=== PATIENT | female | born 2000 | race Caucasian/White ===

== ENCOUNTER → 2023-04-04 15:43 | Outpatient (CLI) | payer OTHER, SELFPAY | PROVIDERS: Referring Provider Family Medicine; Visit Provider Family Medicine | DX: Z23 Encounter for immunization (principal) | CPT/HCPCS: 90471; 90686 ==

== ENCOUNTER → 2023-11-29 16:51 | Outpatient (CLI) | payer OTHER, SELFPAY ==
[2023-11-29 18:09] LABS: Hematocrit 40.8 % (36-46); Hemoglobin 14.1 g/dL (12.0-16.0); Mean Corpuscular HGB Conc 34.7 % (30-36); Mean Corpuscular Hemoglobin 32.8 PG (26-34); Mean Corpuscular Volume 94.6 fL (80-100); Platelet Count 203 X10^3/uL (150-400); Red Blood Cell Count 4.31 X10^6/uL (4.0-5.2); Red Cell Distribution Width 12.4 % (11.6-14.8); White Blood Cell Count 9.4 X10^3/uL (4.5-11.0)
[2023-11-29 19:00] LABS: BUN Creatinine Ratio 9.3 (6-22); Blood Urea Nitrogen 10 mg/dL (7-17); Calcium 9.5 mg/dL (8.4-10.2); Carbon Dioxide 27 mmol/L (22-32); Chloride 104 mmol/L (98-107); Estimated Glomerular Filt Rate > 60 mL/min (>60); Glucose 81 mg/dL (70-100); HEMOLYSIS < 15 (0-50); Potassium 3.9 mmol/L (3.4-5.1); Sodium 139 mmol/L (137-145)
[2023-11-29 19:31] LABS: TSH w/ Reflex to FT4 0.95 uIU/mL (0.47-4.68)
== END ==
LOC: LAB 16:51
PROVIDERS: PCP Nurse Practitioner Family; Referring Provider Nurse Practitioner Family; Visit Provider Nurse Practitioner Family
DX: R61 Generalized hyperhidrosis (principal)
CPT/HCPCS: 36415; 80048; 84443; 85027

== ENCOUNTER → 2024-04-14 | Outpatient (CLI) | payer OTHER, SELFPAY | PROVIDERS: PCP Nurse Practitioner Family; Referring Provider Internal Medicine; Visit Provider Internal Medicine | DX: Z23 Encounter for immunization (principal) | CPT/HCPCS: 90471; 90656 ==

== ENCOUNTER → 2024-09-01 07:07 | Outpatient (CLI) | payer OTHER, SELFPAY ==
--- NOTE | 2024-09-01 07:08 | DI.US.S_ITS ---
PROCEDURE: US OB <= 14 WEEKS FETUS INDICATIONS: DATING OUTSIDE/PRIOR DATING DATA: Last menstrual period (LMP): 07/07/2024. LMP-based estimated date of delivery (PANCHO): 04/13/2025. First dating scan (date and location): 09/01/2024. Estimated date of delivery (PANCHO) from first dating scan: 04/15/2025. The calculations are made using the clinical PANCHO of 03/24/2025. TECHNIQUE: Real-time scanning was performed of the fetus and maternal pelvic organs, with image documentation. Endovaginal scanning was also performed to better visualize the fetus and maternal ovaries. COMPARISON: None. FINDINGS: Embryo: Single live intrauterine is identified with crown-rump length measuring 14 mm corresponding to 7 weeks 5 days. Perigestational hemorrhage is present measuring 2.4 x 3.1 x 0.9 cm. Heart rate: 162 beats per minute. Maternal organs: Ovaries demonstrate a left corpus luteal cyst.. IMPRESSION: Single live intrauterine with gestational age today of 7 weeks 5 days. Small perigestational hemorrhage. Recommend followup imaging at 20-22 weeks for dates and anatomy. We strive to produce accurate, complete, and clear reports of imaging services. To assist us in improving patient care, this report was composed using standard report templates and voice recognition software. Therefore, it may contain abnormal punctuation, insertions and/or omissions. Occasional wrong-word or sound-alike substitutions may occur. Though we review the report and make efforts to correct it, we do recommend that the report be read carefully in proper context to recognize any text inaccuracies. Dictated by: Carlotta Freeman M.D. on 09/01/2024 at 11:25 Approved by: Carlotta Freeman M.D. on 09/01/2024 at 11:28
== END ==
LOC: US 07:08
PROVIDERS: PCP Nurse Practitioner Family; Referring Provider Family Medicine; Visit Provider Family Medicine
DX: O34.81 Maternal care for other abnormalities of pelvic organs, first trimester (principal); O46.91 Antepartum hemorrhage, unspecified, first trimester; N83.12 Corpus luteum cyst of left ovary; Z3A.01 Less than 8 weeks gestation of pregnancy
CPT/HCPCS: 76801; 76817

== ENCOUNTER → 2024-10-01 08:56 | Outpatient (CLI) | payer OTHER, SELFPAY ==
[2024-10-01 09:34] LABS: Add Manual Diff / Slide Review NO; Basophils Absolute Auto 0 /uL (0-100); Basophils Percent Auto 0.2 % (0-2); Eosinophils Absolute Auto 0 /uL (0-450); Eosinophils Percent Auto 0.4 % (2-4); Hematocrit 42.3 % (36-46); Hemoglobin 14.7 g/dL (12.0-16.0); Lymphocytes Absolute Auto 1600 /uL (1100-4500); Lymphocytes Percent Auto 19.8 % (25-40); Mean Corpuscular HGB Conc 34.9 % (30-36); Mean Corpuscular Volume 94.6 fL (80-100); Monocytes Absolute Auto 400 /uL (0-900); Monocytes Percent Auto 4.3 % (3-14); Neutrophils Absolute Auto 6200 /uL (1500-7000); Neutrophils Percent Auto 75.3 % (50-75); Platelet Count 222 X10^3/uL (150-400); Red Blood Cell Count 4.47 X10^6/uL (4.0-5.2); Red Cell Distribution Width 12.5 % (11.6-14.8); White Blood Cell Count 8.3 X10^3/uL (4.5-11.0)
[2024-10-01 10:04] LABS: Natera Collection Specimen Collected
[2024-10-01 10:16] LABS: Alanine Aminotransferase 19 IU/L (<35); Albumin 4.5 g/dL (3.5-5.0); Albumin Globulin Ratio 1.7 (1.0-2.8); Alkaline Phosphatase 47 U/L (38-126); Aspartate Aminotransferase 29 IU/L (14-36); BUN Creatinine Ratio 9.8 (6-22); Bilirubin Total 0.5 mg/dL (0.2-1.3); Blood Urea Nitrogen 5 mg/dL (7-17); Calcium 9.8 mg/dL (8.4-10.2); Carbon Dioxide 21 mmol/L (22-32); Chloride 104 mmol/L (98-107); Estimated Glomerular Filt Rate > 60 mL/min (>60); Globulin 2.6 g/dL (1.7-4.1); Glucose 86 mg/dL (70-100); HEMOLYSIS < 15 (0-50); Potassium 4.3 mmol/L (3.4-5.1); Sodium 134 mmol/L (137-145); Total Protein 7.1 g/dL (6.3-8.2)
[2024-10-01 12:48] LABS: Appearance Urine UA CLEAR; Bilirubin Urine UA NEGATIVE (NEGATIVE); Color Urine UA YELLOW; Glucose Urine UA NEGATIVE (Negative); Ketones Urine UA NEGATIVE (NEGATIVE); Leukocyte Esterase Urine UA NEGATIVE (NEGATIVE); Nitrite Urine UA NEGATIVE (Negative); Occult Blood Urine UA NEGATIVE (Negative); Protein Urine UA NEGATIVE (Negative); Specific Gravity Urine UA >=1.030 (1.000-1.035); Urobilinogen Urine UA 0.2 E.U./dL (0.2)
[2024-10-01 13:50] LABS: Urine Chlamydia NOT DETECTED; Urine N gonorrhoeae NOT DETECTED
[2024-10-01 14:51] LABS: Creatinine Urine Random 214.55 mg/dL; Protein (Total) Urine Random 10 mg/dL (0-12); Protein Creatinine Ratio Urine 0.04 GRAM/24H
[2024-10-01 15:37] LABS: Hepatitis B Surface Antigen NEGATIVE s/c (NEGATIVE)
[2024-10-01 15:45] LABS: HIV 1 & 2 Ab/Ag 4th Gen Combo NEGATIVE (NEGATIVE); Hep C Virus Ab w/Reflex Quant NEGATIVE s/c (NEGATIVE)
[2024-10-02 03:41] LABS: RPR Screen Non Reactive (Non Reactive)
[2024-10-02 09:40] LABS: Varicella IgG Antibody Non Reactive (Non Reactive)
== END ==
PROVIDERS: PCP Nurse Practitioner Family; Referring Provider Family Medicine; Visit Provider Family Medicine
DX: Z34.01 Encounter for supervision of normal first pregnancy, first trimester (principal)
CPT/HCPCS: 36415; 80053; 80055; 81003; 82570; 84156; 86787; 86803; 86850; 86900; 86901; 87086; 87389; 87491; 87591

== ENCOUNTER → 2024-11-19 07:35 | Outpatient (CLI) | payer OTHER, SELFPAY ==
--- NOTE | 2024-11-19 07:36 | DI.US.S_ITS ---
PROCEDURE: US OB >= 14 WEEKS FETUS INDICATIONS: anatomy US OUTSIDE/PRIOR DATING DATA: Last menstrual period (LMP): 07/07/2024. LMP-based estimated date of delivery (PANCHO): 04/13/2025. First dating scan (date and location): 09/01/2024. Estimated date of delivery (PANCHO) from first dating scan: 04/15/2025. The calculations are made using the clinical PANCHO of 04/13/2025. TECHNIQUE: Real-time scanning was performed of the fetus, with image documentation and biometric measurements. Endovaginal scanning: Not performed COMPARISON: [facility], , OB <= 14 WEEKS FETUS, 09/01/2024, 7:15. FINDINGS: General: A single living intrauterine gestation is present. Presentation: Transverse, head maternal left. Placenta: Placental position is posterior, without previa. Amniotic fluid index: 17.2 cm, normal range is 5-24 cm. Single deepest vertical pocket is 5.1 cm. heart rate: 145 beats per minute. Maternal cervical canal: 4.4 cm long. Normal lower limit is 2.5 cm. biometrics: Biparietal diameter: 4.3 cm, 19 weeks 0 days Head circumference: 15.9 cm, 18 weeks 5 days Abdominal circumference: 14.5 cm, 19 weeks 6 days Femur length: 2.8 cm, 18 weeks 5 days Clinically estimated gestational age: 19 weeks 2 days Composite gestational age from present scan: 19 weeks 1 day Estimated weight and percentile: 281 g, 42 percentile Anatomic survey: Neuro: Ventricles are non-dilated at less than 10 mm. Cisterna magna is normal at 3-11 mm. Cerebellum is normal in size and morphology. Nuchal skin fold: Normal at less than 6 mm between 14-21 weeks gestational age. Face: Nose and lips, facial profile are normal. Spine: No evidence for spina bifida. Heart: 4-chambered heart is present, with normal ventricular outflow tracts. Diaphragm: Diaphragm is intact. Stomach: Left-sided stomach is present. Kidneys: No hydronephrosis. Normal is less than 5 mm in 2nd trimester, less than 7 mm in 3rd trimester. Cord: 3-vessel cord has orthotopic insertion. Bladder: Normal in size. Extremities: All 4 extremities identified. IMPRESSION: 1. Rosales living intrauterine at 19 weeks 1 day based on today's ultrasound. Fetus is in the 42 percentile for weight. 2. Normal placenta and amniotic fluid. 3. Normal and complete anatomic survey. We strive to produce accurate, complete, and clear reports of imaging services. To assist us in improving patient care, this report was composed using standard report templates and voice recognition software. Therefore, it may contain abnormal punctuation, insertions and/or omissions. Occasional wrong-word or sound-alike substitutions may occur. Though we review the report and make efforts to correct it, we do recommend that the report be read carefully in proper context to recognize any text inaccuracies. Dictated by: Dl Wood M.D. on 11/20/2024 at 12:17 Approved by: Dl Wood M.D. on 11/20/2024 at 12:22
== END ==
PROVIDERS: PCP Nurse Practitioner Family; Referring Provider Family Medicine; Visit Provider Family Medicine
DX: Z34.90 Encounter for supervision of normal pregnancy, unspecified, unspecified trimester (principal); Z3A.19 19 weeks gestation of pregnancy
CPT/HCPCS: 76811

== ENCOUNTER → 2024-12-24 08:28 | Outpatient (CLI) | payer OTHER, SELFPAY ==
[2024-12-24 10:09] LABS: Add Manual Diff / Slide Review NO; Hematocrit 38.3 % (36-46); Hemoglobin 13.3 g/dL (12.0-16.0); Lymphocytes Absolute Auto 1700 /uL (1100-4500); Mean Corpuscular HGB Conc 34.6 % (30-36); Mean Corpuscular Hemoglobin 34.1 PG (26-34); Mean Corpuscular Volume 98.6 fL (80-100); Platelet Count 194 X10^3/uL (150-400)
[2024-12-24 10:28] LABS: HEMOLYSIS < 15 (0-50); Iron 107 ug/dL (37-170)
[2024-12-24 10:35] LABS: GTT (PREG) 1 Hour PP 50gm Dose 124 mg/dL (76-139)
[2024-12-24 10:39] LABS: Percent Iron Saturation 23 % (15-50); Total Iron Binding Capacity 470 ug/dL (265-497); Transferrin 413 mg/dL (206-381)
[2024-12-24 11:05] LABS: Ferritin 7 ng/mL (6-137)
== END ==
PROVIDERS: PCP Nurse Practitioner Family; Referring Provider Family Medicine; Visit Provider Family Medicine
DX: Z13.0 Encounter for screening for diseases of the blood and blood-forming organs and certain disorders involving the immune mechanism (principal); Z34.92 Encounter for supervision of normal pregnancy, unspecified, second trimester
CPT/HCPCS: 36415; 82728; 82950; 83540; 83550; 85025

== ENCOUNTER 2025-01-21 10:27 | Outpatient (CLI) | payer OTHER, SELFPAY ==
[2025-01-21 11:26] VITALS: BP 132/80
== END 2025-01-21 11:49 | disposition home or self-care (01) ==
LOC: LABOR 11:48 → OB 14:36
PROVIDERS: PCP Nurse Practitioner Family; Referring Provider Family Medicine; Visit Provider Family Medicine
DX: O36.8130 Decreased fetal movements, third trimester, not applicable or unspecified (principal); O60.03 Preterm labor without delivery, third trimester; Z3A.28 28 weeks gestation of pregnancy
CPT/HCPCS: 59025; G0378; G0379

== ENCOUNTER → 2025-03-19 08:01 | Outpatient (CLI) | payer OTHER, SELFPAY ==
[2025-03-20 14:17] LABS: Strep Grp B PCR NEG for Grp B Strep
== END ==
PROVIDERS: PCP Nurse Practitioner Family; Visit Provider Family Medicine
DX: Z36.85 Encounter for antenatal screening for Streptococcus B (principal)
CPT/HCPCS: 87653

== ENCOUNTER 2025-04-06 18:50 | Inpatient (IN) | payer OTHER, SELFPAY ==
[2025-04-06 19:15] VITALS: BP 133/83
--- NOTE | 2025-04-06 19:22 | PM.OBHP.IH.1 ---
OB HPI Date/Time Date of admission: 04/06/25 Date Patient Seen: 04/06/25 History of Present Condition Chief complaint: Induction PANCHO Calculator Estimated Delivery Date Method Current WG Current Estimate 04/13/25 LMP (Certain) 39w 1d Other Estimates 04/15/25 Ultrasound #1 38w 6d Estimated Gestational Age (weeks): 39w0d : 2 Para: 0 Narrative: Healthy 24 yo presenting for eIOL at 39w0d. has been uncomplicated. care: good care Dating criteria OB: LMP confirmed by 1st trimester US Ultrasounds: normal 1st trimester US Obstetrical complications: none Medical complications OB: none Preadmission Labs Last OB Lab Results: Blood Type O Positive 04/06/25, 19:29 Antibody Screen Negative 04/06/25, : Hct, (36-46) 43.6 % 04/06/25, : Hgb, (12.0-16.0) 15.0 g/dL 04/06/25, : Hep Bs Antigen, (NEGATIVE) Negative s/c 10/01/24, 09:04 Hepatitis C Antibody, (NEGATIVE) Negative s/c 10/01/24, 09:04 Rubella Antibody, (>15) 110.0 IU/mL 10/01/24, 09:04 VZV IgG Antibody, (Non Reactive) Non reactive 10/01/24, 09:04 Glucose 1 Hr 50 gm, (76-139) 124 mg/dL 12/24/24, 09:50 Group B Strep (PCR) Neg for grp b strep 03/19/25, 08:01 Glucose Tolerance Testin hr (124) -: Chlamydia screen: negative and Gonorrhea screen: negative Prior (ies) Past Pregnancies Del. Date GA/Weeks Labor Lgth Wt Sex Route Outcome Anesthesia Place Delv Breastfeed Preg Comp Name 04/24/23 7 spontaneous Delivery Date: 04/24/23 Last Updated by: Lula Sanders RN retained products, initially tried oral Rx, eventually needed D&C Evaluation Evaluation Baseline heart rate: 120 Variability: Moderate (6-25) monitor accelerations: Present Monitor Decelerations: Absent Contraction Frequency (minutes): 0 Dilation (cm): 1 Effacement (%): 30 Dilation: 1-2 cm Effacement: 0-30% station: -3 Position of cervix: mid Consistency: medium Watson score: 3 [facility] Medical History (Updated 10/01/24 @ 21:20 by Digna Leiva MD) Closed head injury (~2011) Intracranial hemorrhage (~2011) Arm fracture Wrist fracture Clavicle fracture Surgical History (Updated 08/18/24 @ 15:40 by Lula Sanders, RN) History of rhinoplasty (11/22/18) History of dilation and curettage (03/24/22) History of ankle surgery (06/24/15) Family History (Updated 08/18/24 @ 15:46 by Lula Sanders, FIONA) Mother Age: 50 Anxiety Depression Endometriosis Diabetes mellitus Hyperemesis gravidarum labor in second trimester Father Age: 53 Dyslexia Sister Age: 18 Anxiety Depression Dyslexia Sister Age: 27 Ovarian cyst Endometriosis Brother Age: 24 Autism Grandmother Dementia Grandfather Lung cancer Exposure to chemical inhalation Grandfather Brain cancer Benign brain tumor Agent orange exposure Social History marital status: number of children: 0 household members: spouse lives independently: Yes caregiver/support person: No housing: house pets and animals: Yes (cats & dogs) education level: college (bachelor's degree) occupational status: employed ([employer]) current occupational exposures/hazards: No special faye needs: No travel history: over 6 months ago seatbelt use: always water heater temp set < 120 deg: Yes working smoke detector in home: Yes fire extinguisher in home: Yes carbon monox detector in home: Yes firearms in home: No do you feel safe at home: Yes Smoking Status: Never smoker second hand exposure: No alcohol intake: former (~2-3/week when not ) substance use type: marijuana (not recently) during the past year weight has: increased > 10 lbs (~10 lb) well-balanced diet: daily or most days daily servings fruits/ve-4 caffeine: Yes (switched to green tea for , typically ~300mg/day) Type(s) of exercise: aerobic and weight lifting Meds Home Medications and Allergies Home Medications ?Medication ?Instructions ?Recorded ?Confirmed ?Type vitamin-ferrous sulfate 1 tab PO DAILY 08/18/24 04/06/25 History 27 mg iron-folic acid 0.8 mg tablet sertraline 100 mg tablet 100 mg PO DAILY #90 tabs 01/22/25 04/06/25 Rx breast pump #1 ea 02/24/25 04/06/25 Rx Held on 04/06/25. Instructions: Change in level of care Allergies Allergy/AdvReac Type Severity Reaction Status Date / Time Penicillins Allergy Severe Anaphylaxis Verified 04/06/25 19:41 Review of Systems Review of Systems Narrative: + regular contractions - LOF + movement - vaginal bleeding OB Exam Narrative Exam Narrative: GEN: uncomfortable appearing, breathing through contractions Pulm: breathing comfortably on RA ABd: gravid MSK: laying in bed, moving all extremities neuro: non-focal Objective Labs 04/06/25 19:29 Assessment and Plan Assessment and Plan Assessment and Plan narrative: 24 yo presenting for mIOL at 39w EGA # SIUP at term: - admit to LD - continuous monitoring - Start PO Cytotec, 25mcg x1, if tolerated, increase to 50mcg on second dose - Anesthesia consult - CBC, TS - cephalic by bedside US 04/06 on admissionn - GBS negative Time-Based Coding :: [TOTAL MINUTES] spent with patient and on the chart (including review of chart, obtaining history, exam, reviewing outside data, placing orders, documenting exam and treatment plan, and counseling patient) on [DATE].
[2025-04-06 19:39] LABS: Add Manual Diff / Slide Review NO; Hematocrit 43.6 % (36-46); Hemoglobin 15.0 g/dL (12.0-16.0); Lymphocytes Absolute Auto 1600 /uL (1100-4500); Mean Corpuscular HGB Conc 34.4 % (30-36); Mean Corpuscular Hemoglobin 33.4 PG (26-34); Mean Corpuscular Volume 97.0 fL (80-100); Platelet Count 164 X10^3/uL (150-400)
[2025-04-07] MEDS: fentaNYL 100 MCG/2 ML INJ 50 MCG IV (08:29)
[2025-04-07] MEDS: ONDANSETRON 4 MG/2 ML INJ IV ×2 (08:47→10:11)
[2025-04-07] MEDS: LACTATED RINGERS 1,000 ML 100 ML IV ×2 (09:44→13:38)
--- NOTE | 2025-04-07 10:20 | PM.AN.REGBLK ---
Regional Block Pre-procedure Procedure: Continuous Lumbar Epidural for L&D Attending OB provider: Digna Leiva PMH/ROS narrative: Healthy presents for IOL at term, requests LISY for labor pain. PSH/Anesthesia history narrative: General anesthetic during R ankle reconstruction without complication Exam narrative: See pre-anesthesia eval form. ASA Class: II Labs: Hct 43.6 % (36-46) 04/06/25 19:29 Plt Count 164 X10^3/uL (150-400) 04/06/25 19:29 Medications: Current Medications Generic Name Dose Route Start Last Admin Trade Name Freq PRN Reason Stop Dose Admin Carboprost Tromethamine 250 mcg 04/06/25 19:18 Carboprost 250 Mcg/Ml Ampul IM Q90M PRN Bleeding Oxytocin/Lactated Ringer's 30 unit in 500 mls @ 200 mls/hr 04/06/25 19:18 Oxytocin Premix IV CONT PRN Bleeding Protocol Tranexamic Acid 1,000 mg/ 100 mls @ 600 mls/hr 04/06/25 19:18 Sodium Chloride IV NOW PRN Bleeding Lidocaine HCl 20 ml 04/06/25 19:18 Lidocaine 1% 20 Ml INJ INTRA-OP PRN Post Delivery Methylergonovine Maleate 0.2 mg 04/06/25 19:18 Methylergonovine 0.2 Mg Tablet PO Q6HR PRN Heavy Bleeding Methylergonovine Maleate 0.2 mg 04/06/25 19:18 Methylergonovine 0.2 Mg/Ml Vial IM NOW PRN Bleeding Mineral Oil 30 ml 04/06/25 19:18 Mineral Oil 30 Ml Udc TOP PRN PRN Version Misoprostol 800 mcg 04/06/25 19:18 Misoprostol 200 Mcg Tablet WV NOW PRN Bleeding Misoprostol 400 mcg 04/06/25 19:18 Misoprostol 200 Mcg Tablet SL NOW PRN Bleeding Misoprostol 50 mcg 04/07/25 00:00 04/07/25 05:15 Misoprostol 25 Mcg Tablet PO 50 mcg Q4H FABIAN Administration Naloxone HCl 0.2 mg 04/06/25 19:18 Naloxone 0.4 Mg/Ml Vial IV Q2MIN PRN Opiate Reversal Ondansetron HCl 4 mg 04/07/25 08:21 04/07/25 10:11 Ondansetron 4 Mg/2 Ml Inj IV 4 mg Q6HR PRN Administration Nausea And Vomiting Oxytocin 10 unit 04/06/25 19:18 Oxytocin 10 Unit/Ml Vial IM NOW PRN Bleeding Allergies: Allergies Allergy/AdvReac Type Severity Reaction Status Date / Time Penicillins Allergy Severe Anaphylaxis Verified 04/07/25 09:57 Procedure Insertion date: 04/07/25 Insertion time: 10:04 Prep/Local: 1% lidocaine (5mL and CHG to back) Interspace: L3/4 Patient position: sitting Needle: 17 gauge Tuohy (18g) Loss of resistance with: saline CALI at (cm): 6 (5.5) Catheter placed at SKIN (cm): 12 Catheter in SPACE (cm): 6 (6.5) Sensory level: T10 Insertion: No CSF, No Blood, No Paresthesia with insertion, No Paresthesia with injection and No Test dose reaction Initial Medications TEST DOSE time: 10:05 BOLUS DOSE time: 10:07 BOLUS DOSE (mL): 10 BOLUS DOSE med: 0.25% bupivacaine (+ additional 8mL infusate bolus at 1022) Infusion INFUSION: 0.125% bupivacaine and with fentanyl 2 mcg/mL Initial rate (mL/hr): 8 Subsequent interventions: 2000: Called to bedside to assess pain level. Per RN, pain with contractions is 5/10, although patient has been grimacing and unable to talk through contractions, and dermatome level was assessed to T12. On arrival to bedside, RN had just completed cervical exam and pt was found to be nearly complete at 9.5 cm. Epidural bolus given of 5mL of 2% lidocaine and 5mL 0.25% bupivacaine. PCEA button was also available for re-dose and was also concurrently pushed. Fifteen minutes later pain was improved but still grimacing through contractions. Additional 5mL 0.25% bupivacaine given, patient was turned from RLD to supine, and patient reported much more comfort. On re-evaluation, sensory block to T11, heavy legs but with intact dorsi/plantar-flexion and ability to slightly lift off bed. Hemodynamically stable, on the hyperdynamic side, denies HERNANDEZ. Patient now reports satisfaction with pain level. Post-procedure Anesthesia date START: 04/07/25 Anesthesia time START: 09:58 Anesthesia date END: 04/07/25 Anesthesia time END: 21:15 Post-procedure Anesthesia Assessment: Yes CV function: HR/BP stable, Yes Resp function: RR/sat/airway adequate, Yes Post-op hydration adequate, Yes Pain control adequate, Yes Nausea & vomiting absent, Yes Temperature > 36 C, Yes Mental status appropriate and No Anesthesia complications
[2025-04-07] MEDS: METOCLOPRAMIDE 10 MG/2 ML INJ IV (13:38)
--- NOTE | 2025-04-07 13:38 | PM.OBPNLAB ---
Date/Time Date Patient Seen: 04/07/25 Time Patient Seen: 08:00 Pain Control Pain control: tolerating well Pelvic Exam Dilation (cm): 1 Effacement (%): 50 station: -3 Amniotic membrane status: Intact Contractions Contractions on admission: none Contraction frequency (min): 3 Status status: Category l Heart Rate Baseline: 130 Monitor Accelerations: Present Monitor Decelerations: Absent Monitor Variability: Moderate Assessment and Plan Assessment: induction ongoing Plan: continuous present management Comments: 24 yo presenting for mIOL at 39w EGA # SIUP at term: - continuous monitoring - S/p PO Cytotec, 25mcg x1 and 50mcg x1 - joel balloon placed with 60cc fluid at 08:39 - 1 dose 50mcg IV Fentanyl given for placement - Anesthesia consult - CBC, TS - cephalic by bedside US 04/06 on admission - GBS negative
--- NOTE | 2025-04-07 13:41 | PM.OBPNLAB ---
Date/Time Date Patient Seen: 04/07/25 Time Patient Seen: 08:00 Pain Control Pain control: epidural Comments: pain worsened after joel placement, requested epidural, now comfortable. Joel still in place. SVE not repeated Pelvic Exam Dilation (cm): 1 Effacement (%): 50 station: -3 Amniotic membrane status: Intact Contractions Contractions on admission: none Contraction frequency (min): 3 Status status: Category l Heart Rate Baseline: 120 Monitor Accelerations: Present Monitor Decelerations: Absent Monitor Variability: Moderate Assessment and Plan Assessment: induction ongoing Plan: continuous present management Comments: 24 yo presenting for mIOL at 39w EGA # SIUP at term: - continuous monitoring - S/p PO Cytotec, 25mcg x1 and 50mcg x2 - joel balloon placed with 60cc fluid at 08:39, will be removed tonight at 20:30 if it has not fallen out by that time - 1 dose 50mcg IV Fentanyl given for placement - Anesthesia consult - CBC, TS - cephalic by bedside US on admission (04/06) - GBS negative
[2025-04-07] MEDS: OXYTOCIN PREMIX 30 UNIT/500 ML PLAST..BAG IV (14:05)
[2025-04-07] MEDS: FENT 2MCG/ML BUPIV 0.125% EPI 200 MCG/100 ML PLAST..BAG 8 MCG EPIDURAL (15:20)
[2025-04-07] MEDS: LACTATED RINGERS 1,000 ML 999 ML IV (20:35)
[2025-04-07] MEDS: TRANEXAMIC ACID 1,000 MG in SODIUM CHLORIDE 0.9% 100 ML 600 MG IV (21:25)
[2025-04-07] MEDS: OXYTOCIN PREMIX 30 UNIT/500 ML PLAST..BAG 95 UNIT IV (21:45)
--- NOTE | 2025-04-07 22:24 | PM.OBPRVD ---
Labor & Delivery Delivery date: 04/07/25 Delivery Time: 20:59 Intrapartal Events: None Cervical ripening method: per misoprostal protocol Induction method: per pitocin protocol Delivery augmentation: rupture of membranes Delivery monitor: external FHT Route of delivery: L&D Laceration Description: Perineal - 3rd Degree and Labial (bilateral) Delivery repair: vicryl (2-0) Estimated blood loss (mL): 1,400 Quantitative Blood Loss: 1,362 Anesthesia Type: Epidural Complications: hemorrhage, 3A perineal laceration Narrative: PROCEDURE: 24-year-old was admitted at 39w1d for elective induction of labor. was uncomplicated. She was started on p.o. Cytotec and received 25 mcg x 1, 50 mcg x 3. Greene balloon was placed and fill out before 12 hour charly. She was started on low-dose Pitocin and uptitrated as tolerated. AROM occured at 17:28 with clear fluid. Pain was controlled with epidural. The patient progressed through the 2nd stage and delivered a viable male with APGARs 9/9 at 2059 via direct OA. The cord was cut and clamped after 6 second delay. The placenta delivered with gentle cord traction, and appeared complete. A large of blood was noted with delivery of placenta. 800 mcg of Cytotec and 1 g TXA were administered. Bleeding slowed with PPH meds and fundal massage. The perineum and vagina were inspected with 3A perineal laceration with right-sided labial extension which were repaired in the usual fashion. Additionally, a left-sided labial laceration was present but hemostatic and therefore not repaired. QBL was calculated at 2362 but a large volume of amniotic fluid was noted with delivery of infant so 1000 was subtracted from calculate QBL to determine final QBL of 1362 Needle and sponge counts were correct.? The vagina was inspected and no items were left in situ. Mom is doing well with Barron and FOB at bedside PREPROCEDURE DIAGNOSIS: Intrauterine at 39w2d GBS negative RH positive POSTPROCEDURE DIAGNOSIS: Intrauterine at 39w2d, delivered Same as preprocedure Third-degree perineal laceration (3A) hemorrhage [place] Baby Barron: gender: Male Presentation: vertex Placenta delivery description: Spontaneous Cord Vessel Description: 3 Vessels score (1 min): 9 score (5 min): 9 Plan for aftercare: Routine care
[2025-04-07] MEDS: ACETAMINOPHEN 325 MG TABLET 650 MG PO (22:48)
[2025-04-07] MEDS: KETOROLAC 30 MG/ML VIAL IV (22:48)
[2025-04-07] MEDS: LANOLIN OINT 7 GM 1 APPLIC TOP (22:49)
[2025-04-07] MEDS: DERMOPLAST SPRAY 20% 60 ML 1 SPRAY TOP (22:49)
[2025-04-08] MEDS: ACETAMINOPHEN 325 MG TABLET 650 MG PO ×2 (05:03→10:57)
[2025-04-08] MEDS: IBUPROFEN 600 MG TABLET PO ×2 (05:15→10:56)
[2025-04-08 07:58] LABS: Add Manual Diff / Slide Review NO; Hematocrit 29.7 % (36-46); Hemoglobin 10.3 g/dL (12.0-16.0); Lymphocytes Absolute Auto 1800 /uL (1100-4500); Mean Corpuscular HGB Conc 34.6 % (30-36); Mean Corpuscular Hemoglobin 33.4 PG (26-34); Mean Corpuscular Volume 96.8 fL (80-100); Platelet Count 136 X10^3/uL (150-400)
--- NOTE | 2025-04-08 08:01 | P.DS_ITS ---
Discharge Providers Provider Date of admission: 04/06/25 18:50 Discharge Date: 04/08/25 Primary care physician: JEROMY Blanco- Consults: 04/07/25 22:20 Consult to Plate Put In Worker Routine Comment: Discharge provider: Digna Leiva MD Summary Hospital Course Date Patient Seen: 04/08/25 Time Patient Seen: 07:30 Hospital Course: 24-year-old G2 now P1 was admitted at 39w1d for elective induction of labor. was uncomplicated. She was started on p.o. Cytotec and received 25 mcg x 1, 50 mcg x 3. Greene balloon was placed and fill out before 12 hour charly. She was started on low-dose Pitocin and uptitrated as tolerated. AROM occured at 17:28 with clear fluid. Pain was controlled with epidural. The patient progressed through the 2nd stage and delivered a viable male with APGARs 9/9 at 2059 via direct OA. The cord was cut and clamped after 6 second delay. The placenta delivered with gentle cord traction, and appeared complete. A large of blood was noted with delivery of placenta. 800 mcg of Cytotec and 1 g TXA were administered. Bleeding slowed with PPH meds and fundal massage. The perineum and vagina were inspected with 3A perineal laceration with right-sided labial extension which were repaired in the usual fashion. Additionally, a left-sided labial laceration was present but hemostatic and therefore not repaired. QBL was calculated at 2362 but a large volume of amniotic fluid was noted with delivery of so 1000 was subtracted from calculate QBL to determine final QBL of 1362 PP Hgb was 10.3. She is not experiencing any anemia sx. She has voided. Pain is well controlled with tylenol and ibuprofen. She is without difficulty Peripartum Data Delivery Method: Natural Vaginal Laceration Description: Perineal - 3rd Degree and Labial complications: other (PPH ) Barnard Barrno: Gender: Male Disposition of : home Time Spent with Patient Time attestation: Total time spent providing and/or coordinating discharge services: Time spent: Less than 30 minutes Objective Labs 04/08/25 07:48 Labs: Laboratory Results - last 24 hr 04/08/25 07:48 WBC 15.9 H D RBC 3.07 L Hgb 10.3 L Hct 29.7 L MCV 96.8 MCH 33.4 MCHC 34.6 RDW 13.9 Plt Count 136 L Neut % (Auto) 82.2 H Lymph % (Auto) 11.2 L [place] % (Auto) 6.3 Eos % (Auto) 0.1 L Baso % (Auto) 0.2 Neut # (Auto) 46903 H Lymph # (Auto) 1800 [place] # (Auto) 1000 H Eos # (Auto) 0 Baso # (Auto) 0 Exam Narrative Exam Narrative: GEN: Healthy appearing, well-developed, NAD. PSYCH: Good Judgment. AOx3. Normal memory, mood, and affect HEENT: -Head: NC/AT -Eyes: No discharge or redness CV: warm and well perfused LUNGS: breathing comfortably on RA SKIN: Warm, well perfused. No skin rashes or abnormal lesions ABD: fundus firm below U MSK: No deformities NEURO: No focal deficits Discharge Plan Discharge Plan Patient Disposition: Home Discharge orders & Medications Prescriptions: Continued sertraline 100 mg tablet 100 mg PO DAILY Qty: 90 4RF (DME) breast pump See Rx Instructions .Route .MEDSUPPLY Qty: 1 0RF Rx Instructions: to use as directed vit-ferrous sulfat-FA 27 mg iron- 0.8 mg tablet 1 tab PO DAILY Follow up/Referrals: Digna Leiva MD [Physician, Family Practice] - 05/19/25 10:45 am Referral Note: Please follow up w/ Dr. Leiva for your 6 week appointment on May 19. 2024 @10:45am. Please arrive at 10:30am for check in! :) Marbella Barrett FNP- [Primary Care Provider, Family Practice] Visit Report/Discharge Packet Instructions: DI for Hemorrhage, Fitness, DI for Depression Stand Alone Forms: Discharge: Care, Patient Portal/API, Stroke Signs & Symptoms Discharge Data Primary Care Provider: Marbella Barrett
[2025-04-08] MEDS: PRENATAL VIT,CALC/IRON/FOLIC 1 TABLET 1 TAB PO (09:24)
[2025-04-08] MEDS: INFLUENZA VACCINE 0.5 ML SYRINGE IM (16:17)
== END 2025-04-08 16:40 | disposition home or self-care (01) | DRG 768 ==
PROVIDERS: Admitting Provider Nurse Practitioner Family; PCP Nurse Practitioner Family; Referring Provider Family Medicine; Visit Provider Family Medicine
DX: O70.21 Third degree perineal laceration during delivery, IIIa (principal); Z37.0 Single live birth; O72.0 Third-stage hemorrhage; Z3A.39 39 weeks gestation of pregnancy
CPT/HCPCS: 36415; 59050; 59200; 76815; 85025; 86850; 86900; 86901; 90471; 90656; G0379; J1885; J2405; J2590; J2765; J3010; J7050; J7120; Q2038; S0191